=== PATIENT | female | born 2000 | race Caucasian/White ===

== ENCOUNTER 2022-03-23 07:42 | Emergency (ER) | payer OTHER ==
[~2022-03-23] VITALS: Ht 162.6 cm; Wt 54.5 kg
[2022-03-23 07:56] VITALS: BP 111/57
== END 2022-03-23 09:35 | disposition home or self-care (01) ==
LOC: EMS 07:42
DX: Z11.1 Encounter for screening for respiratory tuberculosis (principal)
CPT/HCPCS: 71045; 99283